=== PATIENT | male | born 1990 | race Caucasian/White ===

== ENCOUNTER 2022-05-06 21:14 | Emergency (ER) | payer MEDICAID ==
[~2022-05-06] VITALS: Ht 172.7 cm; Wt 72.6 kg
--- NOTE | 2022-05-06 21:25 | NUR ---
Dr. Hawley at bedside for MSE.
[2022-05-06] MEDS ORDERED: CEFTRIAXONE 1 G VIAL IM ONE (21:30)
[2022-05-06] MEDS ORDERED: TDAP DIPH,PERTUSS,TET VAC/PF 0.5 ML DISP.SYRIN IM ONE ×2 (21:30→22:12)
[2022-05-06] MEDS ORDERED: ONDANSETRON ODT 4 MG TAB.RAPDIS SL ONE (21:45)
[2022-05-06] MEDS ORDERED: HYDROCODONE/APAP 10-325 MG TABLET PO ONE (21:45)
[2022-05-06] MEDS ORDERED: SULFAMETH/TRIMETH 800/160 MG TABLET PO ONE (21:45)
[2022-05-06] MEDS ORDERED: ONDANSETRON ODT 4 MG TAB.RAPDIS ONE (22:11)
[2022-05-06] MEDS ORDERED: CEFTRIAXONE 1 G VIAL ONE (22:11)
[2022-05-06] MEDS ORDERED: LIDOCAINE HCL 1% 20 ML VIAL ONE (22:11)
[2022-05-06] MEDS ORDERED: SULFAMETH/TRIMETH 800/160 MG TABLET ONE (22:12)
[2022-05-06] MEDS ORDERED: HYDROCODONE/APAP 10-325 MG TABLET ONE (22:12)
[2022-05-06] MEDS ORDERED: ONDA4TAB5 PO (22:34)
[2022-05-06] MEDS ORDERED: HYDR-4209 PO (22:34)
[2022-05-06] MEDS ORDERED: SULF1TAB48 PO (22:34)
[2022-05-06] MEDS ORDERED: CEPH500T PO (22:34)
--- NOTE | 2022-05-06 22:59 | NUR ---
Patient discharged to home in stable condition. Written and verbal after care instructions given. Patient verbalizes understanding of instructions. Stressed follow up or return to ER for worsening s/s. Patient out of ER with crutches, no falls noted, VSS, no acute signs of distress, all belongings taken, instructed not to drive, to be driven home by family via private vehicle.
[2022-05-06 23:01] VITALS: BP 129/66
== END 2022-05-06 23:02 | disposition home or self-care (01) ==
LOC: ER 21:14
DX: S81.031A Puncture wound without foreign body, right knee, initial encounter (principal); W45.0XXA Nail entering through skin, initial encounter; W22.8XXA Striking against or struck by other objects, initial encounter; Y93.89 Activity, other specified; Y92.89 Other specified places as the place of occurrence of the external cause
CPT/HCPCS: 99284; 29505; 73564; 90715; 96372; 90471; J0696; J3490; A4663; Q0162

== ENCOUNTER 2022-05-08 11:18 | Emergency (ER) | payer MEDICAID ==
[~2022-05-08] VITALS: Ht 172.7 cm; Wt 79.4 kg
[~2022-05-08 11:18] MED LIST: CEPH500T PO; HYDR-4209 PO; ONDA4TAB5 PO; SULF1TAB48 PO
--- NOTE | 2022-05-08 11:55 | NUR ---
Gave pt d/c instructions, pt verbalized understanding. Translated by pt's friend.
== END 2022-05-08 11:57 | disposition home or self-care (01) ==
LOC: ER 11:21
DX: S81.031D Puncture wound without foreign body, right knee, subsequent encounter (principal); W45.0XXD Nail entering through skin, subsequent encounter; M25.461 Effusion, right knee
CPT/HCPCS: A4663